=== PATIENT | female | born 1965 | race Caucasian/White ===

== ENCOUNTER 2024-02-17 10:30 | Outpatient (CLI) | payer BC ==
[2024-02-17] MEDS ORDERED: Magnevist 469MG/ML 20 ML VIAL ONE (11:17)
[2024-02-17] MEDS ORDERED: Glucagon 1 MG/ML KIT ONE (11:54)
== END 2024-02-17 10:31 | disposition home or self-care (01) ==
LOC: MRI 10:30
PROVIDERS: ATTEND Internal Medicine Gastroenterology
DX: K50.90 Crohn's disease, unspecified, without complications (principal); R19.7 Diarrhea, unspecified; R10.31 Right lower quadrant pain
CPT/HCPCS: 74183; A9579; J1611

== ENCOUNTER 2025-05-02 12:09 | Outpatient (CLI) | payer BC ==
[2025-05-02 14:44] LABS: Estimated GFR - POC 64.0
== END 2025-05-02 12:10 | disposition home or self-care (01) ==
LOC: MRI 12:09
PROVIDERS: ATTEND Physician Assistant Medical
DX: K50.90 Crohn's disease, unspecified, without complications (principal); K56.609 Unspecified intestinal obstruction, unspecified as to partial versus complete obstruction
CPT/HCPCS: 36415; 74183; 82565